=== PATIENT | female | born 1970 | race Caucasian/White ===

== ENCOUNTER 2023-06-06 06:15 | Day surgery (SDC) | payer OTHER, SELFPAY ==
[2023-06-06] VITALS (8 sets, daily range): BP systolic 100–128; BP diastolic 48–108; BMI 41.3
[2023-06-06] MEDS: NORMOSOL-R 1000 IV (08:15)
[2023-06-06] MEDS: TYLENOL 1000 MG PO (08:20)
[2023-06-06] MEDS: CELEBREX 200 MG PO (08:22)
== END 2023-06-06 12:40 | disposition home or self-care (01) ==
LOC: SDS 06:15
PROVIDERS: ATTENDING PHYSICIAN Specialist
DX: M75.42 Impingement syndrome of left shoulder (principal); M19.012 Primary osteoarthritis, left shoulder; S46.212A Strain of muscle, fascia and tendon of other parts of biceps, left arm, initial encounter; X58.XXXA Exposure to other specified factors, initial encounter
CPT/HCPCS: 29828; 29824; 29826

== ENCOUNTER → 2023-12-17 07:08 | Outpatient (REF) | payer OTHER, SELFPAY | LOC: PAVMRI 07:08 | PROVIDERS: ATTENDING PHYSICIAN Podiatrist Foot & Ankle Surgery; FAMILY PHYSICIAN Internal Medicine | DX: S93.491D Sprain of other ligament of right ankle, subsequent encounter (principal) | CPT/HCPCS: 73721 ==

== ENCOUNTER → 2024-03-08 12:02 | Outpatient (REF) | payer OTHER, SELFPAY | LOC: WDC 12:02 | PROVIDERS: ATTENDING PHYSICIAN Nurse Practitioner Adult Health | DX: Z12.31 Encounter for screening mammogram for malignant neoplasm of breast (principal) | CPT/HCPCS: 77063; 77067 ==

== ENCOUNTER 2024-04-08 06:22 | Day surgery (SDC) | payer OTHER, SELFPAY | END 2024-04-08 15:02 | disposition home or self-care (01) | LOC: GI 06:22 | PROVIDERS: ATTENDING PHYSICIAN Specialist | DX: R12 Heartburn (principal); K29.50 Unspecified chronic gastritis without bleeding; K31.89 Other diseases of stomach and duodenum; Z09 Encounter for follow-up examination after completed treatment for conditions other than malignant neoplasm; Z86.19 Personal history of other infectious and parasitic diseases | CPT/HCPCS: 43239; 88305; 88342 ==

== ENCOUNTER → 2024-12-16 09:31 | Outpatient (REF) | payer OTHER, SELFPAY | LOC: RAD 09:31 | PROVIDERS: ATTENDING PHYSICIAN Orthopaedic Surgery; FAMILY PHYSICIAN Family Medicine | DX: M43.16 Spondylolisthesis, lumbar region (principal) | CPT/HCPCS: 72110 ==

== ENCOUNTER → 2025-01-11 13:06 | Outpatient (REF) | payer OTHER, SELFPAY | LOC: HWRAD 13:06 | PROVIDERS: ATTENDING PHYSICIAN Nurse Practitioner Family; FAMILY PHYSICIAN Family Medicine | DX: R22.2 Localized swelling, mass and lump, trunk (principal) | CPT/HCPCS: 76882 ==

== ENCOUNTER 2025-02-08 12:05 | Emergency (ER) | payer OTHER, SELFPAY ==
[2025-02-08] VITALS (9 sets, daily range): BP systolic 101–139; BP diastolic 62–81; BMI 38.2
[2025-02-08 12:30] LABS: Hematocrit 42.3 % (37.0-47.0); Hemoglobin 13.8 g/dL (12.0-16.0); Mean Corp Hgb Conc. 32.6 g/dL (33.0-37.0); Mean Corpuscular Volume 96.6 fL (81.0-99.0); Nucleated Red Blood Cells % 0 %; Platelet Count 199 10^3/uL (130-400); Red Cell Dist. Width 12.3 % (11.5-14.5)
[2025-02-08 12:46] LABS: ALT (SGPT) 13 U/L (0-35); AST (SGOT) 29 U/L (14-36); Albumin 4.4 g/dl (3.5-5.0); Alkaline Phosphatase 92 U/L (38-126); Blood Urea Nitrogen 19 mg/dl (7-17); Calcium 9.5 mg/dl (8.4-10.2); Carbon Dioxide 30 mmol/L (22-30); Chloride 106 mmol/L (98-107); Glucose 91 mg/dl (70-99); Potassium 5.1 mmol/L (3.5-5.1); Sodium 139 mmol/L (135-145); Total Protein 7.8 g/dl (6.3-8.2); eGFR > 60.00
[2025-02-08 12:58] LABS: Troponin I < 0.012 ng/ml
--- NOTE | 2025-02-08 14:17 | ED.GENMED ---
History of Present Illness
General
Chief Complaint: Chest Pain
Source: patient
Exam Limitations: none
Time Seen by Provider: 02/08/25 14:17
Nursing documentation reviewed up to this point in time: agreed with
History of Present Illness
History of Present Illness:
55 yr old female presents to the ED for evaluation of discomfort. Patient reports she has had several episodes of discomfort in the upper abdominal lower chest region between her breasts that radiates to her back. She had an episode on Friday
after eating hamburger which lasted for 15 minutes and resolved on its own. On Friday 2 days ago she had another episode which lasted for 30 minutes not associate with eating however today she had a different type of tightness in her chest. Today
it did not radiate to her back. She does feel like it takes her breath away and she feels a little short of breath. 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 She denies any
recent illness fever or chills.
She does have a history of reflux and did skip Omeprazole 1 day. She has been taking Pepcid.
Past History
Past History
ED Past Medical History: GERD and Psychiatric
ED Past Surgical History: Orthopedic
Social History
Tobacco: Non-smoker
Alcohol: Occasional
Drug: None
Personal:
Living: with family
Employment: Employed
Phy Exam
General Physical Exam
General Presentation: no apparent distress
General age: appears stated age
General Skin: warm and dry
General Habitus: normal
General Mental: alert
General Hydration: appears well hydrated
Cardiovascular Exam
Cardiovascular Exam: regular rate/rhythm, no murmur and normal peripheral pulses
Pulmonary Exam
Pulmonary Exam: lungs clear and no respiratory distress
Gastrointestinal Exam
Gastrointestinal Exam: soft and other (minimal epigastric tenderness )
Neurological Exam
Neurological Exam: alert and oriented x3
Musculoskeletal Exam
Musculoskeletal Exam: full ROM
Skin Exam
Skin Exam: normal color and warm/dry
Psychiatric Exam
Psychiatric Exam: normal mood/affect
Scores
Heart Score for Chest Pain Patients
STEMI patient?: Not applicable
Course
Orders/Labs/Results
Orders:
Orders
02/08/25 12:06
Electrocardiogram (*1) Urgent
Reason for Study: Chest Pain
EKG- Treatment ONCE
02/08/25 12:20
Complete Blood Count/With Diff Urgent
Comprehensive Metabolic Panel Urgent
Lipase Urgent
Comment: ADD ON
Troponin I Urgent
02/08/25 14:24
Add On- LAB Urgent
Tests Added?: lipase
02/08/25 14:25
CXR2 [CR Chest - 2 Views ] Urgent
Comment:
Reason For Exam: chest pain
02/08/25 14:43
US Abdomen Complete/Upper Urgent
Comment:
Reason For Exam: upper abd pain
02/08/25 16:05
DDimer [D-Dimer] Urgent
02/08/25 16:41
CT Chest PE Study Urgent
Comment:
Reason For Exam: cp radiating to back/ SOB
02/08/25 20:47
Albuterol Nebs [Ventolin Nebules] 2.5 mg INH R NOW STA
Abnormal Lab Results
02/08/25 02/08/25
12:20 16:05
MCH 31.5 H pg
(27.0-31.0)
MCHC 32.6 L g/dL
(33.0-37.0)
Absolute Monos (auto) 0.8 H 10^3/uL
(0.1-0.6)
Monocytes % 11.0 H %
(1.7-9.3)
D-Dimer 0.61 H ug/mlFEU
(0.00-0.50)
BUN 19 H mg/dl
(7-17)
02/08/25 12:20
02/08/25 12:20
Vital Signs
Initial and Last Documented VS:
Initial Vital Signs
Temp Pulse Resp BP Pulse Ox
98.3 F 67 16 139/81 100
02/08/25 12:07 02/08/25 12:07 02/08/25 12:07 02/08/25 12:07 02/08/25 12:07
Last Documented Vital Signs
Temp Pulse Resp BP Pulse Ox
98.3 F 69 12 127/80 97
02/08/25 12:07 02/08/25 20:00 02/08/25 20:00 02/08/25 20:00 02/08/25 20:00
[employer] consulted with Physician
Before [employer] Bab[employer] consulted with physician?: Yes
Name of Physician Consulted: Jose
MDM/Problems Addressed
Differential Diagnosis Includes:
Not limited to gastritis GERD also biliary duct stone less likely ACS
MDM/Problems Addressed:
As documented patient is a 55-year-old female who presents for evaluation. Patient has intermittent episodes of pain in her epigastric area which goes to her back At times associated with eating. Today patient had her upper chest pain which is
what concerned her and brought her to the ER. She has had cholecystectomy in the past. She reports sometimes she feels like a spasm may pain and it takes her breath away. Minimal epigastric tenderness. Ultrasound done shows cholecystectomy with
no evidence of biliary duct dilatation. Patient is nontachycardic nontachypneic no PE DVT risk factors however D-dimer ordered and minimally elevated will order CT. Possible gastritis patient has no cardiac history no acute findings on EKG normal
cardiac troponin
CT negative. Patient is not wheezing her feels that her asthma may be acting up. Will give a neb. She is otherwise in no acute distress feeling better. With negative CT and negative cardiac troponin symptoms not likely cardiac. Possible
gastritis or peptic ulcer disease. She is to continue on pantoprazole close follow-up with her family doctor with chest pain referred chest pain hotline.
Chronic conditions affecting care:
Reflux, asthma
*Radiology
Radiology exam reviewed: radiology read reviewed
*Pulse Oximetry
SaO2: 100
Oxygen Mode of Delivery: Room air
Patient hypoxic: no
*Critical Care Note
Total Time (30-74mins, 75-104mins- exclusive of procedures): Not Applicable
ED Attending Note
-
Portions of this chart may have been created with voice recognition software.� Occasional wrong word or��sound alike� substitutions may have occurred due to the inherent limitations of voice recognition software.
Discharge Plan
Departure
Patient Disposition: Home (Routine Discharge)
Date of Disposition: 02/08/25
Time of Disposition: 20:50
Patient with high blood pressure during this ER visit?: Yes
Condition: Fair
Covid-19: Not Applicable
Discharge Problem:
Chest pain
Instructions: Chest Pain CBC Follow Up, BLOOD PRESSURE
Prescriptions:
No Action
ibuprofen 600 MG tablet
600 mg PO Q6HPRN PRN (Reason: pain)
cetirizine 10 MG tablet
10 mg PO DAILY
acetaminophen 325 MG tablet
650 mg PO Q4HPRN PRN (Reason: mild to moderate pain) Qty: 0 0RF
albuterol sulfate 90 mcg/actuation Hfa Aerosol Inhaler
1 inh INHALATION PRN PRN (Reason: shortness of breath)
omeprazole 20 mg Tablet,Delayed Release (Dr/Ec)
20 mg PO DAILY
Breztri Aerosphere 160-9-4.8 mcg/actuation Hfa Aerosol Inhaler
2 inh INHALATION BID
acetaminophen 500 mg Tablet
1,000 mg PO QID PRN (Reason: pain)
Referrals:
UNKNOWN - PT DOES,NOT KNOW [Unknown Provider]
Activity Restrictions/Additional Instructions:
As discussed because of chest discomfort you were placed on the cardiac hotline. you should receive a phone call from the cardiology office in the next several days if you do not please call the office to schedule an appointment soon as possible.
In addition please continue to follow-up with your family doctor next week.
Return if any worsening of symptoms.
Interventions
Interventions:
*Risk Screen - Suicide Last Done: 02/08/25 12:09
*General Assessment Last Done: 02/08/25 14:28
*Neglect/Abuse Screening Last Done: 02/08/25 12:09
*ED- Fall Risk Assessment Last Done: 02/08/25 14:28
*ED COVID-19 Vaccine History Last Done: 02/08/25 14:28
*ED Influenza Vaccine History Last Done: 02/08/25 14:28
ED- Cardiac Assessment Last Done: 02/08/25 14:38
Discharge Date and Time
Print Language: [email or web address]
[2025-02-08 14:36] LABS: Lipase 135 U/L (23-300)
[2025-02-08 16:29] LABS: D-Dimer 0.61 ug/mlFEU (0.00-0.50)
[2025-02-08] MEDS: VENTOLIN NEBULES 2.5 MG INH (21:13)
== END 2025-02-08 21:49 | disposition home or self-care (01) ==
LOC: EMR 12:05
PROVIDERS: Emergency Medicine; Nurse Practitioner; EMERGENCY PHYSICIAN Student in an Organized Health Care Education/Training Program; FAMILY PHYSICIAN Family Medicine
DX: R07.9 Chest pain, unspecified (principal); R03.0 Elevated blood-pressure reading, without diagnosis of hypertension; J45.909 Unspecified asthma, uncomplicated; K21.9 Gastro-esophageal reflux disease without esophagitis
CPT/HCPCS: 99284; 94640; 71046; 71275; 76700; 80053; 83690; 84484; 85025; 85379; 93005; Q9967

== ENCOUNTER → 2025-03-09 13:11 | Outpatient (REF) | payer OTHER, SELFPAY | LOC: WDC 13:11 | PROVIDERS: ATTENDING PHYSICIAN Nurse Practitioner Adult Health | DX: Z12.31 Encounter for screening mammogram for malignant neoplasm of breast (principal) | CPT/HCPCS: 77063; 77067 ==

== ENCOUNTER → 2025-03-09 13:35 | Outpatient (REF) | payer OTHER, SELFPAY | LOC: REG 13:35 | PROVIDERS: ATTENDING PHYSICIAN Nurse Practitioner Adult Health | DX: M25.572 Pain in left ankle and joints of left foot (principal) | CPT/HCPCS: 73610 ==

== ENCOUNTER → 2025-03-18 06:40 | Outpatient (REF) | payer OTHER, SELFPAY | LOC: PAVMRI 06:40 | PROVIDERS: ATTENDING PHYSICIAN Nurse Practitioner Adult Health | DX: M25.572 Pain in left ankle and joints of left foot (principal) | CPT/HCPCS: 73721 ==